=== PATIENT | female | born 1965 | race Caucasian/White ===

== ENCOUNTER 2020-09-21 16:08 | Emergency (ER) | payer OTHER ==
[2020-09-21 16:50] VITALS: BP 111/75; PULSE 92; TEMP 98.6; BMI 28.3
[2020-09-21] MEDS ORDERED: IBUPROFEN 600 MG TABLET (FP) PO ONE ×2 (17:08→17:19)
== END 2020-09-21 18:24 | disposition home or self-care (01) ==
LOC: JERFT 16:08
DX: S93.402A Sprain of unspecified ligament of left ankle, initial encounter (principal); X50.9XXA Other and unspecified overexertion or strenuous movements or postures, initial encounter
CPT/HCPCS: 73610-TC-LT-FY; 73630-TC-LT; 99283-25